=== PATIENT | female | born 1980 | race African-American/Black ===

== ENCOUNTER 2016-09-29 21:23 | Emergency (ER) | payer OTHER ==
[~2016-09-29] VITALS: Ht 170.2 cm; Wt 61.4 kg
[2016-09-29 22:03] LABS: HEMATOCRIT 39.7 % (36.0-46.0); MCH 31.8 PG (29.0-34.0); MCV 93.4 FL (83-99); MEAN PLAT.VOLUME 10.4 uM^3 (9.5-12.4); PLATELET COUNT 317 K/uL (156-360); RBC DIS.WIDTH-CV 11.8 % (11.8-14.6); RBC DIS.WIDTH-SD 40.6 % (39-53); RED BLOOD COUNT 4.25 M/uL (3.80-5.20); WHITE BLOOD COUNT 4.2 K/uL (4.1-10.2)
[2016-09-29 22:13] LABS: CHLORIDE 113 mEq/L (99-109); POTASSIUM 3.8 mEq/L (3.7-5.4); SODIUM 146 mEq/L (136-147)
[2016-09-29 22:15] LABS: GLUCOSE 127 mg/dL (70-99)
[2016-09-29 22:16] LABS: ANION GAP 10 MEQ/L (2-14)
[2016-09-29 22:18] LABS: GFR ESTIMATE (CALCULATED) > 59 mL/min/; SERUM ETHYL ALCOHOL 333 mg/dL
[2016-09-29 22:19] LABS: UREA NITROGEN (BUN) 11 mg/dL (9-23)
[2016-09-29 22:29] LABS: AMPHETAMINE NEGATIVE (500 ng/mL); BARBITURATES NEGATIVE (200 ng/mL); BENZODIAZEPINES NEGATIVE (150 ng/mL); COCAINE PRESUMPTIVE POSITIVE (150 ng/mL); INTERNAL CONTROLS VALID? YES; METHADONE NEGATIVE (200 ng/mL); METHAMPHETAMINE NEGATIVE (500 ng/mL); OPIATES (MORPHINE) NEGATIVE (100 ng/mL); OXYCODONE NEGATIVE (100 ng/mL); PHENCYCLIDINE NEGATIVE (25 ng/mL); PROPOXYPHENE NEGATIVE (300 ng/mL); THC CANNABINOIDS NEGATIVE (50 ng/mL); TRICYCLIC ANTIDEPRESSANTS NEGATIVE (300 ng/mL)
[2016-09-29 22:30] LABS: ADD MEDTOX COMMENT Y
[2016-09-29 22:30] LABS: QUANTITATIVE HCG < 4.0 MIU/ML
[2016-09-30 08:13] VITALS: BP 122/97
== END 2016-09-30 08:19 | disposition home or self-care (01) ==
LOC: EME 21:23
DX: F33.9 Major depressive disorder, recurrent, unspecified (principal); F10.129 Alcohol abuse with intoxication, unspecified; F14.10 Cocaine abuse, uncomplicated; R45.851 Suicidal ideations; Y90.8 Blood alcohol level of 240 mg/100 ml or more; F17.200 Nicotine dependence, unspecified, uncomplicated
CPT/HCPCS: 80048; 84702; 84999; 85027; 90837; 99281; 99285; G0480